=== PATIENT | male | born 2000 | race Caucasian/White ===

== ENCOUNTER 2023-10-31 20:45 | Emergency (ER) | payer BC ==
[~2023-10-31] VITALS: Ht 193 cm; Wt 138.6 kg
[2023-10-31] MEDS ORDERED: Home HYDROcodone/Acetaminophen 5/325 MG #4 TABS/PACK PO ONE (23:45)
[2023-10-31] MEDS ORDERED: NORCO 325 MG-51 TAB PO (23:54)
[2023-11-01 00:08] VITALS: BP 122/73; PULSE 91; TEMP 98.3
== END 2023-11-01 00:08 | disposition home or self-care (01) ==
LOC: COL.ER 20:45
DX: S83.91XA Sprain of unspecified site of right knee, initial encounter (principal); X58.XXXA Exposure to other specified factors, initial encounter; Y93.67 Activity, basketball